=== PATIENT | female | born 1995 | race Caucasian/White ===

== ENCOUNTER 2022-07-29 11:36 | Emergency (ER) | payer OTHER ==
--- OUTSIDE RECORDS SUMMARY | 2022-07-29 11:39 | XMS REPORT | Continuity of Care Document ---
:1995 Author Organization [facility] t Address [address] [facility] [address] [place] [address] Care Team Providers Name Role Phone ESTELA GABRIEL Primary Care Physician Unavailable ESTELA GABRIEL Attending Clinician Unavailable ESTELA GABRIEL Attending Clinician Unavailable Payers Payer Name Policy Type Policy Number Effective Date Expiration Date Kike ABEL II [id number] 2022 00:00:00 Problems This patient has no known problems. Allergies, Adverse Reactions, Alerts Allergy Allergy Status Severity Reaction(s) Onset Inactive Treating Comm ents Source Name Type Date Date Clinician NO KNOWN Drug Active [facility] ALLERGIE [facility] Medications This patient has no known medications. Procedures This patient has no known procedures. Encounters Start End Encounter Admission Attending Care Care Encounter Source Date/Time Date/Time Type Type Clinicians Facility Department ID 2022-06-03 2022-06-03 Outpatient R ESTELA GABRIEL [facility] B [id number] [facility] 11:30:00 11:30:00 ESTELA GABRIEL [facility] Results This patient has no known results.
[2022-07-29] MEDS ORDERED: IBUPROFEN 200 MG TAB PO ONE (12:15)
[2022-07-29 12:16] LABS: Specific Gravity 1.027 (1.005-1.030); Transitional Epithelial <5 /HPF (None Seen); Urine Bacteria <20 /HPF (<20); Urine Bilirubin NEGATIVE (Negative); Urine Blood Trace (Negative); Urine Clarity Turbid (Clear); Urine Color Light-Yellow (Yellow); Urine Glucose NEGATIVE (Negative); Urine Mucus Slight /HPF (None Seen); Urine Protein TRACE (Negative); Urine RBC <5 /HPF (None Seen); Urine Urobilinogen Normal (Normal); Urine pH 6.5 (5.0-7.0)
[2022-07-29] MEDS ORDERED: ONDANSETRON 4 MG/2 ML VIAL ONE (12:52)
[2022-07-29 13:03] LABS: Specific Gravity 1.027 (1.005-1.030)
[2022-07-29 13:03] LABS: Hematocrit 43.7 % (36.0-45.0); Lymphocytes % 9.3 % (15.3-44.8); MCV 83.4 fL (80-100); MPV 8.6 fL (7.6-11.3); RBC Red Blood Cell Count 5.24 M/uL (3.86-4.86)
[2022-07-29 13:18] LABS: Potassium 3.7 mEq/L (3.5-5.1)
--- NOTE | 2022-07-29 14:00 | RAD REPORT ---
EXAM DESCRIPTION: CT - Stone Protocol - 07/29/2022 1:27 pm CLINICAL HISTORY: FLANK PAIN COMPARISON: No comparisons TECHNIQUE: Thin cut axial CT imaging of the abdomen and pelvis was performed without IV contrast. Mu ltiplanar reformats were generated and reviewed. All CT scans are performed using dose optimization technique as appropriate and may include automated exposure control or mA/KV adjustment according to patient size. FINDINGS: No suspicious findings in the lung bases. The liver, spleen, and pancreas show no suspicious findings. Gallbladder and biliary tree are also wi thout suspicious finding. Symmetric renal contour, without suspicious parenchymal findings within limits of noncontrast techniq ue. No evidence of radiopaque calculi or hydroureteronephrosis. No dilated bowel loops or bowel wall thickening. No free air, free fluid or inflammatory stranding. N o hernia, mass or bulky lymphadenopathy. The urinary bladder is suboptimally distended which limits e valuation, however without significant finding. No suspicious bony findings. IMPRESSION: No acute intra-abdominal process.
--- NOTE | 2022-07-29 14:07 | ER ---
Nurse's Notes [facility] Name: Michaelle Scherer Age: 26 yrs Sex: Female : 1995 Arrival Date: 07/29/2022 Time: 11:36 Bed 10 Private MD: Diagnosis: Low back pain Presentation: 07/29 11:46 Chief complaint: Patient states: intermittent martha flank pain for a while, woke up today iw and the pain is bad and making me nauseous. Coronavirus screen: At this time, the client does not indicate any symptoms associated with coronavirus-19. Ebola Screen: Patient negative for fever greater than or equal to 101.5 degrees Fahrenheit, and additional compatible Ebola Virus Disease symptoms Patient denies exposure to infectious person. Patient denies travel to an Ebola-affected area in the 21 days before illness onset. No symptoms or risks identified at this time. Initial Sepsis Screen: Does the patient meet any 2 criteria? No. Patient's initial sepsis screen is negative. Does the patient have a suspected source of infection? No. Patient's initial sepsis screen is negative. Risk Assessment: Do you want to hurt yourself or someone else? Patient reports no desire to harm self or others. Onset of symptoms was June 2022. 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 - Social history:: Smoking status: Patient reports the use of cigarette tobacco products, denies chronic smoking, but will smoke occasionally. Screenin:50 [facility] ED Fall Risk Assessment (Adult) Score/Fall Risk Level 0 - 2 = Low Risk. Abuse eh3 screen: Denies threats or abuse. Denies injuries from another. Nutritional screening: No deficits noted. Tuberculosis screening: No symptoms or risk factors identified. Assessment: 11:50 General: Appears in no apparent distress. uncomfortable, Behavior is calm, cooperative, eh3 appropriate for age. Pain: Complains of pain in left flank and right flank. Neuro: Level of Consciousness is awake, alert, obeys commands, Oriented to person, place, time, situation. Cardiovascular: Capillary refill < 3 seconds Patient's skin is warm and dry. Respiratory: Airway is patent Respiratory effort is even, unlabored, Respiratory pattern is regular, symmetrical. GI: Abdomen is round non-distended, Reports nausea. : No signs and/or symptoms were reported regarding the genitourinary system. EENT: No signs and/or symptoms were reported regarding the EENT system. Derm: Skin is pink, warm \\T\\ dry. Musculoskeletal: Circulation, motion, and sensation intact. Range of motion: intact in all extremities. 12:45 Reassessment: Patient appears in no apparent distress at this time. Patient and/or eh3 family updated on plan of care and expected duration. Pain level reassessed. Patient is alert, oriented x 3, equal unlabored respirations, skin warm/dry/pink. 12:50 Reassessment: Pt began vomiting right after IV was placed, stated she doesn't like eh3 needles. Provider ordered Zofran but pt does not want it at this time, stated she doesn't like the feeling of medicine going in through the IV. Pt stated she wants to try to "tough it out". 13:45 Reassessment: Patient appears in no apparent distress at this time. Patient and/or eh3 family updated on plan of care and expected duration. Pain level reassessed. Patient is alert, oriented x 3, equal unlabored respirations, skin warm/dry/pink. Vital Signs: 11:46 BP 125 / 72; Pulse 90; Resp 16; Temp 97.4; Pulse Ox 100% on R/A; Weight 63.5 kg; Height iw 5 ft. 1 in. ; Pain 7/10; 12:45 BP 107 / 72; Pulse 89; Resp 18; Pulse Ox 100% on R/A; eh3 13:45 BP 170 / 68; Pulse 91; Resp 18; Pulse Ox 99% on R/A; eh3 11:46 Body Mass Index 26.45 (63.50 kg, 154.94 cm) iw 11:46 Pain Scale: Adult iw ED Course: 11:41 Patient arrived in ED. am2 11:46 [facility] 7 11:46 Jason Stevens MD is Attending Physician. 7 11:48 Triage completed. iw 11:48 Arm band placed on. iw 11:50 Patient has correct armband on for positive identification. Bed in low position. Call 3 light in reach. 11:53 Elysia Flowers, RN is Primary Nurse. eh3 12:22 Radiology exam delayed due to test not completed at this time. jg10 12:45 Inserted saline lock: 20 gauge in left antecubital area, using aseptic technique. Blood 3 collected. 13:[address] In Process Unspecified. EDMS 14:49 No provider procedures requiring assistance completed. IV discontinued, intact, eh3 bleeding controlled, No redness/swelling at site. Pressure dressing applied. Administered Medications: 12:10 Drug: Ibuprofen PO 600 mg Route: PO; 3 14:48 Follow up: Response: No adverse reaction eh3 14:30 Drug: Cyclobenzaprine PO 10 mg Route: PO; eh3 15:30 Follow up: Response: No adverse reaction 3 14:48 Not Given (Patient Refused): Ondansetron IVP 4 mg IVP once; over 2 minutes eh3 Medication: 14:49 VIS not applicable for this client. eh3 Outcome: 14:07 Discharge ordered by . 7 14:49 Discharged to home ambulatory. 3 14:49 Discharged to home with friend. 14:49 Condition: stable 14:49 Discharge instructions given to patient. 14:49 Discharge instructions given to Instructed on discharge instructions, follow up and referral plans. no driving heavy equipment, medication usage, Demonstrated understanding of instructions, follow-up care, medications, Prescriptions given X 2. 15:04 Patient left the ED. eh3 Signatures: Dispatcher [employer] EDWY Mila Akbar, RN RN iw Diamond Christianson am2 Elysia Flowers, RN RN 3 Mera Duque FNP PATIENT FINANCIAL COORDINATOR 7 Lizet Luke jg10 Corrections: (The following items were deleted from the chart) 11:49 11:46 Pulse 90bpm; Resp 16bpm; Pulse Ox 100% RA; Temp 97.4F; 63.5 kg; Height 5 ft. 1 iw in.; BMI: 26.4; Pain 7/10, Adult; iw 12:12 11:50 GI: Abdomen is round non-distended, eh3 eh3
--- NOTE | 2022-07-29 14:07 | EDPHYS ---
Physician Documentation [facility] Name: Michaelle Scherer Age: 26 yrs Sex: Female : 1995 Arrival Date: 07/29/2022 Time: 11:36 Bed 10 Private MD: CARO Physician Jason Stevens HPI: 07/29 11:45 This 26 yrs old Female presents to ER via Ambulatory with complaints of Flank Pain. jh7 11:45 The patient complains of pain in the left low back and right low back. Onset: The jh7 symptoms/episode began/occurred 3 week(s) ago, and became worse today. Associated signs and symptoms: Pertinent negatives: diarrhea, dizziness, dysuria, fever, urinary frequency, hematuria, nausea. 26-year-old female complains of bilateral flank pain over the past 3 weeks. She denies any injury or urinary symptoms. Reports that twisting motions worsen the pain. States that the pain became worse this morning and that the pain in her left flank began to radiate to her left lower abdomen.. 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 - Social history:: Smoking status: Patient reports the use of cigarette tobacco products, denies chronic smoking, but will smoke occasionally. ROS: 11:45 Constitutional: Negative for fever, chills, and weight loss, Eyes: Negative for injury, jh7 pain, redness, and discharge, Neck: Negative for injury, pain, and swelling, Cardiovascular: Negative for chest pain, palpitations, and edema, Respiratory: Negative for shortness of breath, cough, wheezing, and pleuritic chest pain, Abdomen/GI: Negative for abdominal pain, nausea, vomiting, diarrhea, and constipation, MS/Extremity: Negative for injury and deformity, Skin: Negative for injury, rash, and discoloration, Neuro: Negative for headache, weakness, numbness, tingling, and seizure. 11:45 Back: Positive for flank pain, bilaterally. 11:45 : Positive for flank pain, Negative for urinary symptoms. 11:45 All other systems are negative. Exam: 11:45 Constitutional: This is a well developed, well nourished patient who is awake, alert, jh7 and in no acute distress. Head/Face: Normocephalic, atraumatic. Neck: Trachea midline, no thyromegaly or masses palpated, and no cervical lymphadenopathy. Supple, full range of motion without nuchal rigidity, or vertebral point tenderness. No Meningismus. Cardiovascular: Regular rate and rhythm with a normal S1 and S2. No gallops, murmurs, or rubs. Normal PMI, no JVD. No pulse deficits. Respiratory: Lungs have equal breath sounds bilaterally, clear to auscultation and percussion. No rales, rhonchi or wheezes noted. No increased work of breathing, no retractions or nasal flaring. Abdomen/GI: Soft, non-tender, with normal bowel sounds. No distension or tympany. No guarding or rebound. No evidence of tenderness throughout. Skin: Warm, dry with normal turgor. Normal color with no rashes, no lesions, and no evidence of cellulitis. MS/ Extremity: Pulses equal, no cyanosis. Neurovascular intact. Full, normal range of motion. Neuro: Awake and alert, GCS 15, oriented to person, place, time, and situation. Motor strength 5/5 in all extremities. Sensory grossly intact. Normal gait. 11:45 Back: pain, that is mild, of the left low back, ROM is normal. Vital Signs: 11:46 BP 125 / 72; Pulse 90; Resp 16; Temp 97.4; Pulse Ox 100% on R/A; Weight 63.5 kg; Height iw 5 ft. 1 in. ; Pain 7/10; 12:45 BP 107 / 72; Pulse 89; Resp 18; Pulse Ox 100% on R/A; eh3 13:45 BP 170 / 68; Pulse 91; Resp 18; Pulse Ox 99% on R/A; eh3 11:46 Body Mass Index 26.45 (63.50 kg, 154.94 cm) iw 11:46 Pain Scale: Adult iw MDM: 11:47 Patient medically screened. [facility] 14:01 Differential diagnosis: nephrolithiasis, pyelonephritis, UTI, lumbar strain, lumbar jh7 sprain. Data reviewed: vital signs, nurses notes, lab test result(s), radiologic studies, CT scan. I considered the following discharge prescriptions or medication management in the emergency department Medications were administered in the Emergency Department. See MAR. Counseling: I had a detailed discussion with the patient and/or guardian regarding: the historical points, exam findings, and any diagnostic results supporting the discharge/admit diagnosis, to return to the emergency department if symptoms worsen or persist or if there are any questions or concerns that arise at home. Response to treatment: the patient's symptoms have markedly improved after treatment. 07/29 11:51 Order name: Urinalysis W/Microscopic; Complete Time: 12:19 [facility] 07/29 12:20 Order name: CBC with Diff; Complete Time: 13:21 [facility] 07/29 12:20 Order name: BMP; Complete Time: 13:21 [facility] 07/29 12:47 Order name: Test, Urine; Complete Time: 13:21 07/29 12:20 Order name: Stone Protocol CT; Complete Time: 14:01 [facility] Administered Medications: 12:10 Drug: Ibuprofen PO 600 mg Route: PO; eh3 14:48 Follow up: Response: No adverse reaction eh3 14:30 Drug: Cyclobenzaprine PO 10 mg Route: PO; eh3 15:30 Follow up: Response: No adverse reaction eh3 14:48 Not Given (Patient Refused): Ondansetron IVP 4 mg IVP once; over 2 minutes eh3 Disposition Summary: 07/29/22 14:07 Discharge Ordered Location: Home [facility] Problem: new [facility] Symptoms: have improved [facility] Condition: Stable [facility] Diagnosis - Low back pain [facility] Followup: [facility] - With: Private Physician - When: 2 - 3 days - Reason: Recheck today's complaints Discharge Instructions: - Discharge Summary Sheet jh7 - Acute Back Pain, Adult jh7 - Musculoskeletal Pain jh - Pain Without a Known Cause [facility] Forms: - Medication Reconciliation Form 7 - Thank You Letter [facility] Prescriptions: - Naprosyn 500 mg Oral Tablet - take 1 tablet by ORAL route 2 times per day take with food; 30 tablet; Refills: jh 0, Product Selection Permitted - Zanaflex 4 mg Oral Tablet - take 1 tablet by ORAL route every 8 hours As needed; 20 tablet; Refills: 0, jh7 Product Selection Permitted Signatures: Dispatcher [employer] EDAR Raffy, Mila, RN RN iw FlowersElysia RN RN eh3 Mera Duque, CHARLIE FARM TRACTOR OPERATOR jh7
[2022-07-29] MEDS ORDERED: CYCLOBENZAPRINE 10 MG TAB ONE (14:14)
[2022-07-29 15:10] VITALS: TEMP 97.4
[2022-07-29 15:13] VITALS: BP 170/68; O2SAT 99
== END 2022-07-29 15:04 | disposition home or self-care (01) ==
LOC: ER 11:36
DX: M54.50 Low back pain, unspecified (principal); F17.210 Nicotine dependence, cigarettes, uncomplicated
CPT/HCPCS: 85025; 81001; 80048; 36415; 81025; 76377; 74176; J2405

== ENCOUNTER 2023-11-03 00:01 | Emergency (ER) | payer OTHER ==
--- OUTSIDE RECORDS SUMMARY | 2023-11-03 00:06 | XMS REPORT | Continuity of Care Document ---
Author Name Unknown Address [address] [facility] [place] [address] [facility] thconnect Address [address] [facility] [place] [address] Care Team Providers Care Conformal Pad Former Name Role Phone ESTELA GABRIEL Primary Care Physician Unava ilable [email or web address] Attending Clinician Unavaila ble LAB90 Attending Clinician Unavailable SHARONA LIRA Attending Clinician Unavailable ESTELA GABRIEL Attending Clinician Unavaila ble ESTELA GABRIEL Attending Clinician Unavaila ble [email or web address]_S Admitting Clinician Unavaila ble Payers Payer Name Policy Type Policy Number Effective Date Expirati on Date Source [facility] [id number] 2018 00:00:00 [employer]IG[employer] 2 [id number] 2022 00:00:00 [employer]IG[employer] II [id number] 2022 00:00:00 Problems Condition Name Condition Details Condition Category Status Onset Date Resolution Date Last Treatment Date Treating Clinician Comments Source Acute vaginitis Acute Vaginitis Problem Active 09-07 00:00: 00 [facility] 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 Active 10-01 00:00: 00 Liza Larios - Externa l Allergies, Adverse Reactions, Alerts Allergy Name Allergy Type Status Severity Reaction(s) Onset Date Inactive Date Treating Clinician Comments Source NO KNOWN ALLERGIE S Drug Class Active [facility] Social History Social Habit Start Date Stop Date Quantity Comments Source Gender identity Susana kristin Rubalcavapaulino - External Sexual orientation Prudencio maravilla Briansd - External History of tobacco use Cigarette Smoker Liza beaver - External Alcohol intake 2022-10-01 00:00:00 2022-10-01 00:00:00 Current drinker of alcohol (finding) Liza Larios - External Tobacco use and exposure 2022-09-30 00:00:00 2022-09-30 00:00:00 Smokeless tobacco non-user Liza Larios - External History of Social function 2022-09-30 00:00:00 2022-09-30 00:00:00 Liza Larios - External Alcohol Comment 2022-09-30 00:00:00 2022-09-30 00:00:00 socially Liza Ric - External Sex Ass[birth year] At 1995 00:00:00 1995 00:00:00 Liza Larios - External Smoking Status Start Date Stop Date Source Never Smoker [facility] Ex-smoker 2022-09-30 00:00:00 2022-09-30 00:00:00 Prudencio maravilla Ric - External Vital Signs Vital Name Observation Time Observation Value Comments S ource BP Systolic 2023-09-08 00:00:00 104 mm[Hg] [facility] Height 2023-09-08 00:00:00 60 [in_i] [facility] Body Weight 2023-09-08 00:00:00 144.2 [lb_av] [facility] BP Diastolic 2023-09-08 00:00:00 68 mm[Hg] [facility] BMI (Body Mass Index) 2023-09-08 00:00:00 28.2 kg/m2 [facility] Systolic blood pressure 2022-10-01 13:08:00 94 mm[Hg] Liza Langford ld - External Diastolic blood pressure 2022-10-01 13:08:00 74 mm[Hg] Liza Langford ld - External Heart rate 2022-10-01 13:08:00 71 /min Hannah Larios - External Body temperature 2022-10-01 13:08:00 37 Belinda Liza Larios - External Respiratory rate 2022-10-01 13:08:00 18 /min Liza Larios - External Body height 2022-10-01 13:08:00 152.4 cm Susana Larios - External Body weight 2022-10-01 13:08:00 66.86 kg Susana Larios - External BMI 2022-10-01 13:08:00 28.79 kg/m2 Susana Larios - External Encounters Start Date/Time End Date/Time Encounter Type Admission Type Attending [facility] Care Department Encounter ID Source 2023-09-08 00:00:00 2023-09-08 00:00:00 Raya Luna, BUSINESS SERVICES SALES REPRESENTATIVE: [address], [place] [address] , Ph. [facility] - [email or web address]_[facility]* [id number] [facility] 2023-05-19 00:00:00 2023-05-19 00:00:00 Outpatient GC_GCBZW_Ka diyala_S PRIV PRIV [id number] [facility] 2023-04-21 00:00:00 2023-04-21 00:00:00 Outpatient GC_GCBZW_Ka diyala_S PRIV PRIV [id number] [facility] 2023-03-24 00:00:00 2023-03-24 00:00:00 Outpatient GC_GCBZW_Ka diyala_S PRIV PRIV [id number] [facility] 2023-03-13 00:00:00 2023-03-13 00:00:00 Outpatient GC_GCBZW_Ka diyala_S PRIV PRIV [id number] [facility] 2022-10-01 09:15:00 2022-10-01 09:15:00 Outpatient LAB90 ILZA ROSA [id number] Liza Larios 2022-10-01 08:30:00 2022-10-01 08:30:00 Outpatient SHARONA LIRA [id number] L[facility] Larios 2022-06-03 11:30:00 2022-06-03 11:30:00 Outpatient ESTELA RHODES CHERYAL [facility] [id number] [facility] Notes Date/Time Note Provider Source 2022-10-01 08:08:59 Formatting of this n ote is different from the original. Chief Complaint Patient presents with Physical Casisa Rios CMA I T [facility]
[2023-11-03] MEDS ORDERED: IBUPROFEN 400 MG TAB ONE (01:03)
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
[2023-11-03 01:54] VITALS: TEMP 97.9; O2SAT 99
[2023-11-03 01:55] VITALS: BP 110/83
--- NOTE | 2023-11-04 11:11 | RAD REPORT ---
EXAM DESCRIPTION: RAD - Clavicle Left - 11/03/2023 1:00 am CLINICAL HISTORY: Pain COMPARISON: None. TECHNIQUE: XR CLAVICLE LEFT 11/03/2023 12:48 AM CDT FINDINGS: There is no fracture. Joint spaces are preserved. Soft tissues are unremarkable. IMPRESSION: No acute osseous findings. Electronically signed by: Jose Lopez MD 11/03/2023 01:23 AM CDT RP Due to temporary technical issues with the PACS/Fluency reporting system, reports are being signed by the in house radiologist without review as a courtesy to ensure prompt reporting. The interpreting r adiologist is fully responsible for the content of the report.
== END 2023-11-03 01:49 | disposition home or self-care (01) ==
LOC: ER 00:01
DX: M25.532 Pain in left wrist (principal); M25.531 Pain in right wrist; M25.512 Pain in left shoulder; V49.49XA Driver injured in collision with other motor vehicles in traffic accident, initial encounter
CPT/HCPCS: 99283